=== PATIENT | female | born 1990 | race Asian ===

== ENCOUNTER 2017-08-05 13:06 | Inpatient (IN) | payer MEDICAID, OTHER, SELFPAY ==
[~2017-08-05 13:06] MED LIST: Bacteriostatic Sodium Chloride 10 ML VIAL ONE; Bupivacaine HCl 0.5%/Epinephrine 1:200,000/PF 30 ml Vial ONE; Lidocaine 2% MPF 10 ML AMP (For Epidural Use) ONE
[2017-08-05 13:53] VITALS: BMI 23.1
[2017-08-05] MEDS ORDERED: Lidocaine 2% MPF 10 ML AMP (For Epidural Use) ONE (14:04)
[2017-08-05] MEDS ORDERED: Ondansetron HCl/PF 4 MG/2 ML Vial ONE ×2 (14:04→23:27)
[2017-08-05] MEDS ORDERED: Dexamethasone 20 MG/5 ML VIAL ONE (14:04)
[2017-08-05] MEDS ORDERED: PHENYLEPHRINE-NS 100 MCG/ML 10 ML SYRINGE ONE ×2 (14:04→23:28)
[2017-08-05] MEDS ORDERED: Ketorolac Tromethamine 30 MG/ML VIAL ONE ×2 (14:04→23:27)
--- NOTE | 2017-08-05 14:39 | PDOC.EVN ---
Event Note - Event Note Event Note: @1430: L&D Triage HPI: 26 yo SAB1 at 38.4 weeks with contractions (prefers female provider). Sees Dr Leach. No LOF, no CORTEZ, good FM. No prnatala issues. case reviewed with Dr Walton. Patient evaluated. Review of systems: Complete ROS done and per HPI Allergies: NO SURGURIES: D&C Past OB HX: z 1 Social: negative X 3 Physical: 114/75, afebrile NAD Abd soft NT, gravid Size appropriate CX: closed/thicj/high (per female RN exam) No VB, no ROM Monitors: cat 1, strip reviewed [place] with irregular irritability Assessment: Therm, threatened labor Plan: 1. Monitor for now 2. Pain meds prn 3. Recheck in one our and home if mo significant change
--- NOTE | 2017-08-05 14:46 | PDOC.LDHP ---
Labor and Delivery H&P Chief complaint: contractions HPI: 26 year old @38.4 presents with contractions every 2-3 minutes since 0530 this morning. Denies headache, visual disturbance, abdominal pain, vaginal discharge, bleeding, loss of fluid. Reports regular movements. says she likely has not had enough fluid intake today. Current gestational age (weeks): 38 (38.4) Due date: 08/15/17 Dating criteria: first trimester ultrasound Grav: 3 Para: 1 OB History Details: Current complications: gestational diabetes Abnormal US findings: No Current medications: pre-esperanza vitamins, iron Previous surgical history: dilation and curettage Allergies/Adverse Reactions: Allergies Allergy/AdvReac Type Severity Reaction Status Date / Time No Known Allergies Allergy Unverified 08/02/16 15:40 Social history: none - Physical Exam Vital signs reviewed and normal: yes General: NAD, resting Heart: RRR Lungs: nonlabored breathing Abdomen: other Extremeties: no edema FHT: category 1, variability present [place] contractions every: irritability only - Vaginal Exam cm dilated: 0 Effacement: 25% Station: -3 - OB Labs Blood type: AB RH: positive Antibody Screen: negative HIV: negative RPR: negative HEPSAg: negative 1 hour GCT: positive 3 hour GTT: positive GBS: negative Rubella: immune - Assessment [place] contractions - Plan Plan: observation in L&D (Oral rehydration and recheck cervix. Discharge home if no cervical change. Encouraged oral hydration at home.)
--- NOTE | 2017-08-05 15:34 | PDOC.LDPN ---
Labor & Delivery Progress Note - Subjective Subjective: comfortable - Objective Vital signs reviewed and normal: yes General: NAD, resting, breathing through contractions Uterine fundus: non tender Dilation: 3 Effacement: 75% Station: -1 FHT: category 1, variability present [place] contractions every: Intermittent contractions only Other exam findings: FHTs 140/moderate variability/positive accelrations/no decelerations Plan: continue plan of care -: Patient in latent labor. Continue current management. Recheck in 2 hours.
--- NOTE | 2017-08-05 15:52 | PDOC.EVN ---
Event Note - Event Note Event Note: Triage: Patient has been rechecked. She is now 3cm...BP stable. FHT cat 1. Still in latent phase. We will keep monitoring here and if progresses further, will likely admit.
--- NOTE | 2017-08-05 17:07 | PDOC.EVN ---
Event Note - Event Note Event Note: RN recheck with cervix 3-4cm, otherwise same. Due to cervical change, I have recommended admission for labor to the resident team. Admit to L&D.
[2017-08-05] MEDS ORDERED: Promethazine HCl 25 MG/ML VIAL IM PRN ×2 (17:13→22:40)
[2017-08-05] MEDS ORDERED: Acetaminophen 500 MG TAB PO PRN (17:13)
[2017-08-05] MEDS ORDERED: Ondansetron HCl/PF 4 MG/2 ML Vial IVP PRN ×2 (17:13→22:40)
[2017-08-05] MEDS: Lactated Ringer's 1,000 ML IV SCH ×2 (17:20→22:30)
--- NOTE | 2017-08-05 17:22 | PDOC.LDPN ---
Labor & Delivery Progress Note - Subjective Subjective: painful contractions - Objective Vital signs reviewed and normal: yes General: NAD, breathing through contractions Uterine fundus: non tender SVE: 1700 Dilation: 3.5 Effacement: 75% Station: -1 FHT: category 1, variability present [place] contractions every: 3-4 min - Assessment (1) Term Code(s): Z34.80 - ENCOUNTER FOR SUPRVSN OF NORMAL , UNSP TRIMESTER Current Visit: Yes Status: Acute Plan: continue plan of care -: 26 yo @ 38.4 wks presented w/ ctx 2-3 minutes upon admisson -Made cervical Change from 0/25/-3 to 3.5-4/75/-1 on recheck @ 1700 -Having significant pain rated at 7 w/ contractions Will px tylenol and Stadol as needed -Cat 1 strip, variability. Ctx every 3-4 minutes. -Will admit to L&D and continue to monitor with cervical checks q4hrs overnight. GDM A1 -will continue to monitor sugars as needed. -Diet controlled. <Luis Sanders - Last Filed: 08/05/17 17:23> Plan: other (Dr Shiva Leach to be notified as they prefer a female provider.) <Matheus Owens - Last Filed: 08/05/17 20:18>
[2017-08-05 17:58] LABS: Hemoglobin 15.2 g/dL (12.0-16.0); Mean Corpuscular HGB CONC 34.5 g/dL (32.0-36.0); Mean Corpuscular Hemoglobin 31.7 pg (27.0-31.0); Mean Corpuscular Volume 91.8 fl (81.0-99.0); Platelet Count 164 thou/uL (130-400); RBC Distribution Width 12.7 % (11.5-14.5); White Blood Cell (WBC) Count 9.5 thou/uL (4.8-10.8)
[2017-08-05 18:39] LABS: Syphilis Antibody Nonreactive (Nonreactive); Syphilis Antibody Index 0.06 S/CO (<1.00 Non-Reactive)
[2017-08-05 18:40] LABS: HBSAg Index 0.17 S/CO (0-0.99); Hep B Surf Ag Non-Reactive S/CO (NonReactive)
[2017-08-05] MEDS ORDERED: LR / Pitocin 40 units/1000 ml 1,000 ML ONE (20:02)
[2017-08-05] MEDS ORDERED: Lidocaine 1% (PF) 30 ML VIAL ONE (20:02)
--- NOTE | 2017-08-05 21:05 | PDOC.EVN ---
Event Note - Event Note Event Note: Dr Leach in room with patient. Patient is 9-10cm. I am awaiting outside of room due to patient request of no males in room.
[2017-08-05] MEDS ORDERED: Naloxone HCl 0.4 mg/ml Vial IV PRN (22:12)
[2017-08-05] MEDS ORDERED: Fentanyl 4 mcg/Marc 0.1% Cadd 100 ML in Premix Bag 1 BAG EPIDURAL SCH (22:12)
--- NOTE | 2017-08-05 22:12 | PDOC.LDPN ---
Labor & Delivery Progress Note - Subjective Subjective: other (patient with contraction discomfort (no epidural in use)) - Objective Vital signs reviewed and normal: yes General: breathing through contractions Uterine fundus: non tender SVE: 10 Dilation: 100 Effacement: 0% FHT: variable decelerations (Patient has an external doppler on, and the patient is moving significantly. I have asked Dr Leach tpo place an FSE and/or suggest an epidural to the patient for improved pain control. ) - Assessment (1) Active labor at term Code(s): [id number] - Current Visit: Yes Status: Acute Plan: continue plan of care, other (FSE needed to better track heart tones, this is being done now. Patient consiidering epidural due to patient pain. Patient has been in second stage for only 30 minutes. )
[2017-08-05] MEDS ORDERED: diphenhydrAMINE 50 MG/ML VIAL IVP PRN (22:40)
[2017-08-05] MEDS ORDERED: Lactated Ringer's 500 ML IV PRN (22:40)
[2017-08-05] MEDS ORDERED: Acetaminophen 325 MG TAB PO PRN (22:40)
[2017-08-05] MEDS ORDERED: Eucerin (Mineral Oil/Petrolatum,White) 30 gm Jar TOP PRN (22:40)
[2017-08-05] MEDS ORDERED: ePHEDrine/0.9% NaCl/PF SYRINGE 50 mg/10 ml SLOW IVP PRN (22:40)
[2017-08-05] MEDS ORDERED: Naloxone HCl 0.4 mg/ml Vial IVP PRN ×2 (22:40)
[2017-08-05] MEDS ORDERED: Communication Order-Pharmacy FS SCH (22:45)
[2017-08-05] MEDS ORDERED: Fentanyl 4mcg/Marcaine 0.1% Cassette 100 ML EPIDURAL SCH (22:45)
--- NOTE | 2017-08-05 22:51 | PDOC.LDPN ---
Labor & Delivery Progress Note - Subjective Subjective: painful contractions - Objective Vital signs reviewed and normal: yes General: breathing through contractions Uterine fundus: palpable contractions Dilation: 10 Effacement: 100% Station: 1+ FHT: category 1 (150/mod/no accel) [place] contractions every: 3 FSE placed: yes Resuscitative measures: other (epidural for pain control)
[2017-08-05] MEDS ORDERED: Bicitra 30 ML UDCUP ONE (23:21)
[2017-08-05] MEDS ORDERED: CEFAZOLIN/Water 2 GM/20 ML SYRINGE ONE (23:21)
--- NOTE | 2017-08-05 23:23 | PDOC.EVN ---
Event Note - Event Note Event Note: 2315: PREOP CS Note Indication: Class 3 FHT, prolonged second stage. Patient at C/C/O ROT by Dr Leach. Please see my annotations on the monitor strip. I have been watching the FHT strip for last 20 minutes: she is having persistent late decels with decreased variability (Class III). HUMBERTO in use. As the head is at O station with what seems like narrow pubic arch by Hany (she does not want male exams), we have elected to proceed with primary CS for Class 3 FHTs. additionally, she is now prolonged second stage (2 hrs second stage, as she just received the epidural about 20 minutes ago). BPs reviewed...non-hypotensive. Anesthesia aware. Dr Leach is informing them that I am the faculty organizational development consultant and will be in the CS as well.
[2017-08-05] MEDS ORDERED: Bupivacaine 0.25% HCL 30 ML VIAL ONE ×2 (23:27→23:34)
[2017-08-05] MEDS ORDERED: Oxytocin 10 UNITS/ML VIAL ONE (23:27)
[2017-08-05] MEDS ORDERED: Lidocaine 2% PF 5 ML VIAL ONE (23:27)
[2017-08-05] MEDS ORDERED: Morphine PF 1 MG/ML SYR ONE (23:27)
[2017-08-05] MEDS ORDERED: Dexamethasone 4 mg/ml Vial ONE (23:27)
[2017-08-06] MEDS ORDERED: Azithromycin 500 MG in Sodium Chloride 0.9% 250 ML 250 ML IVPB SCH (00:15)
[2017-08-06] MEDS ORDERED: Adacel (T-DAP) 0.5 ML VIAL IM ONE (00:19)
[2017-08-06] MEDS ORDERED: Lanolin Ointment 7 GM TUBE TOP PRN (00:19)
[2017-08-06] MEDS ORDERED: HYDROcodone/Acetaminophen 5/325 mg Tablet PO PRN (00:19)
[2017-08-06 00:22] LABS: Actual Bicarbonate (HCO3a) 21.5 mEq/L (22-26); Analyzer IN Cardio OR; Base Excess (BEa) -7.3 mEq/L (0 (+/-) 2.5)
--- NOTE | 2017-08-06 00:26 | PDOC.OPDEL ---
OB Operative/Delivery Note Delivery Dr/Surgeon: Hany/Zohaib Assist: Roman Pre-Delivery Diagnosis: arrest of dilation (Failure to descend, Class 3 FHTs), non-reassuring tracing Procedure/Post Delivery Dx: primary low transverse CS Anesthesia: epidural - Additional Findings/Plan Placenta delivered: manual removal findings: low transverse hysterotomy without extension, normal uterus, normal tubes, normal ovaries Estimated blood loss: 1200 Compilations/Other Findings: Male , Agars 8/8 Gas 7.11, BE -7. EBL was due to brief uterine atony post delivery of placenta. Placenta to path. 3VC, Neonatology in room. 2 layer hysterotomy closure performed. rectus muscles loosely reapproximated in midline...Skin: sutured and DBond I was present, scrubbed, and assisted with CS delivery. Uterus closed with 0 vicryl Fascia with O PDS x2 Skin with 3-0 monocryl Post delivery plan: recovery in LICU
[2017-08-06] MEDS ORDERED: LR w/ Pitocin 40 units/1000 ML BAG IV SCH (00:30)
[2017-08-06] MEDS ORDERED: Ketorolac Tromethamine 30 MG/ML VIAL IVP PRN (00:44)
[2017-08-06] MEDS ORDERED: Ondansetron HCl/PF 4 MG/2 ML Vial IVP PRN ×2 (00:44)
[2017-08-06] MEDS ORDERED: Promethazine HCl 25 MG SUPP PR PRN (00:44)
[2017-08-06] MEDS ORDERED: Naloxone HCl 0.4 mg/ml Vial IV PRN (00:44)
[2017-08-06] MEDS ORDERED: diphenhydrAMINE 50 MG/ML VIAL IVP PRN (00:44)
[2017-08-06] MEDS ORDERED: Promethazine HCl 25 MG/ML VIAL IM PRN (00:44)
[2017-08-06] MEDS ORDERED: HYDROmorphone 2 MG/ML VIAL SLOW IVP PRN (00:44)
[2017-08-06] MEDS ORDERED: Eucerin (Mineral Oil/Petrolatum,White) 30 gm Jar TOP PRN (00:44)
[2017-08-06] MEDS ORDERED: Naloxone HCl 0.4 mg/ml Vial IVP PRN ×2 (00:44)
[2017-08-06] MEDS ORDERED: Meperidine HCl/PF 25 MG/ML VIAL SLOW IVP PRN (00:44)
[2017-08-06] MEDS ORDERED: Ketorolac Tromethamine 30 MG/ML VIAL IVP SCH (00:45)
[2017-08-06] MEDS ORDERED: Communication Order-Pharmacy FS SCH (00:45)
[2017-08-06] MEDS ORDERED: Acetaminophen 325 MG TAB PO PRN (02:38)
[2017-08-06] MEDS ORDERED: Lactated Ringer's 1,000 ML IV SCH (04:00)
--- NOTE | 2017-08-06 06:23 | PDOC.EVN ---
Event Note - Event Note Event Note: S: 26 year old -->2 delivered OSEI male @ 38.4 via LTCS @ 23:54 on 08/05/17. Patient states she feels well. She is somewhat sore from the surgery. She also notes minimal lochia, less than a menstrual cycle currently. She admits to fevers and denies chills, coughs, n/v/d. O: Gen: NAD CV: RRR, no murmurs Resp: CTA Abdomen: Incision bandaged and covered A/P 1. Term , delivered - Continue routine care 2. Suspected Intraamniotic infection - Pathology pending placenta - Fever to 102 - Risk factors of fecal matter during delivery, prolonged labor - Will initiate antibiotics. - Continue supportive care. <Mukesh Minor - Last Filed: 08/06/17 06:23> - Event Note Event Note: Suspect postop metritis due to prolonged labor, converted to CS. We will start IV amp/gent/clinda and keep IVfs. Her HCT just returned...HCT was 45 ( hemoconcentrated?) and now 27.5. We will recheck HCT at 1600 today. <Matheus Owens - Last Filed: 08/06/17 06:30>
[2017-08-06 06:27] LABS: Hemoglobin 9.3 g/dL (12.0-16.0); Mean Corpuscular HGB CONC 33.9 g/dL (32.0-36.0); Mean Corpuscular Hemoglobin 31.4 pg (27.0-31.0); Mean Corpuscular Volume 92.6 fl (81.0-99.0); Mean Platelet Volume 7.6 fL (7.4-10.4); Platelet Count 156 thou/uL (130-400); RBC Distribution Width 12.6 % (11.5-14.5); Red Blood Cell (RBC) Count 2.97 mill/uL (4.20-5.40); White Blood Cell (WBC) Count 12.7 thou/uL (4.8-10.8)
[2017-08-06] MEDS ORDERED: Gentamicin 80 MG/2 ML VIAL IVPB SCH (06:30)
--- NOTE | 2017-08-06 06:33 | PDOC.PP ---
Post Progress Note Post Day #: 1 Subjective: Patient feels well. Experiencing fevers to as high as 102, also experiencing pain from surgery. No n/v/d, coughs, or other complaints this morning. PO intake tolerated: yes Flatus: no Ambulation: no Vital Signs (12 hours) Temp Pulse Resp BP 08/06/17 05:59 100.0 F H 08/06/17 05:20 101.6 F H 86 18 102/54 L 08/06/17 03:05 102.0 F H 80 18 100/52 L 08/05/17 19:08 98.7 F 78 20 Weight Weight 63.049 kg - Physical Examination General: NAD Cardiovascular: no m/r/g, RRR Respiratory: clear to auscultation bilaterally, non-labored breathing Abdominal: + bowel sounds, lochia, appropriately TTP Skin: CS incision dry & intact Neurological: no gross focal deficits Psychiatric: A&Ox3 Result Diagrams: 08/06/17 05:53 Additional Labs: Post Labs Hep Bs Antigen Non-Reactive S/CO (NonReactive) 08/05/17 17:20 (1) Chorioamnionitis Code(s): O41.1290 - CHORIOAMNIONITIS, UNSP TRIMESTER, NOT APPLICABLE OR UNSP Status: Acute Comment: Intra-amniotic infection - Will initiate gentamycin, ampicillin, and clindamycin - Continue supportive care (2) Gestational diabetes Code(s): O24.419 - GESTATIONAL DIABETES MELLITUS IN , UNSP CONTROL Status: Acute Comment: POC glucose this am: 126 (3) hemorrhage Code(s): O72.1 - OTHER IMMEDIATE HEMORRHAGE Status: Acute Comment : EBL 1200 H&H this am 9.3 & 27.5 Repeat at 1600 Make treatment changes accordingly (4) Term Code(s): Z34.80 - ENCOUNTER FOR SUPRVSN OF NORMAL , UNSP TRIMESTER Status: Acute Comment: 26 year old ->2 @ 38.4 delivered TAGA male at 23: 54 on 08/05/17 via LTCS. - Continue routine post op care - Continue supportive care. - Assessment/Plan Continue current plan of care.
[2017-08-06] MEDS: Lactated Ringer's 1,000 ML IV SCH ×2 (08:38→18:29)
[2017-08-06] MEDS: Gentamicin Sulfate 300 MG in Sodium Chloride 0.9% 100 ML IVPB SCH (08:56)
[2017-08-06] MEDS: Prenatal Vitamin 1 TAB PO SCH (08:57)
--- NOTE | 2017-08-06 09:34 | OP-2 ---
DATE OF PROCEDURE: 08/05/2017 RESIDENT: Marina Leach M.D., PGY-2 TELEVISION HOST SURGEON: Jacinto Gutierrez M.D., PGY-3 ATTENDING SURGEON: Matheus Owens M.D. PROCEDURE: Primary low transverse section. PREOPERATIVE DIAGNOSES: 1. Arrest of descent. 2. Category III heart tracing. 3. Gestational diabetes, diet controlled. 4. Anemia of . 5. History of hemorrhage requiring blood transfusion. POSTOPERATIVE DIAGNOSES: 1. Arrest of descent. 2. Category III heart tracing. 3. Gestational diabetes, diet controlled. 4. Anemia of . 5. History of hemorrhage requiring blood transfusion. 6. hemorrhage ANESTHESIA: Epidural. INDICATIONS: The patient is a 26-year-old G3, P1-0-1-1, female at 38.4 weeks gestation who presented with painful contractions. The patient progressed as expected to complete dilation, however, after 2 hours did not progress beyond 0 station. An epidural was performed to achieve improved maternal pain control; however, shortly thereafter, the patient was noted to have repetitive late decelerations resulting in a category 3 heart tracing and dispositioned for a primary . PROCEDURE IN DETAIL: Risks, benefits, and alternatives were explained to the patient and she gave informed consent. Preoperative antibiotics included cefazolin 2 grams IV and azithromycin 500 mg IV. The patient was taken to the operating room and prepped and draped in the usual sterile fashion. She was placed in the supine position with left tilt. Pfannenstiel incision was made with scalpel and carried down to the fascia, which was sharply nicked. Fascial cut was extended bilaterally with Santillan scissors. The inferior and superior edges of the cut fascial edges were elevated with Leonidas clamps and underlying rectus muscles were sharply and bluntly dissected free. The recti were divided digitally and retracted manually. The peritoneum was entered bluntly and retracted manually. An Cory O was placed. A low transverse score was made with the scalpel and the uterus was entered in the midline with the scalpel. Clear fluid was seen. Hysterotomy was extended manually in a cephalocaudal fashion. The was noted to be vertex and easily delivered by fundal pressure. Mouth and nares were bulb suctioned. Cord was clamped and cut and grossly normal male infant was handed to awaiting nurse. Body cord was noted around the left leg. Cord blood was obtained as well as a cord segment. Placenta was extracted by gentle traction and fundal pressure, delivered in the [place] presentation, and was sent to pathology. The uterus was manually removed with a lap and ring forceps were placed at bilateral apices. The hysterotomy was repaired with a running locking 0 Vicryl suture followed by a running nonlocking 0 Vicryl imbricating suture. A nlicap-[id number]-drshn suture was placed along the left corner of her for hemostasis. Following this, hemostasis was noted. The abdomen was irrigated with saline and suctioned free of clots. The Cory O was removed and hysterotomy was again noted to be hemostatic. The rectus was approximated with 3-0 chromic suture. The fascia was closed with running nonlocking 0 PDS suture. Subcutaneous tissue was irrigated and there were no bleeders. The skin was closed with running 4-0 Monocryl suture and Dermabond and a pressure dressing were applied. All counts were correct. The patient tolerated the procedure well and was taken to the recovery room in stable condition. ESTIMATED BLOOD LOSS: 1200 mL COMPLICATIONS: hemorrhage. ASSESSMENT: Cord blood sent to lab for blood type, placenta sent to pathology. FINDINGS: Grossly normal male with Apgars of 8 and 8 at 1 and 5 minutes respectively. Grossly normal placenta sent to pathology. DRAINS: [place] to gravity draining clear urine. MTDD
[2017-08-06] MEDS ORDERED: Ampicillin 125 MG/5 ML VIAL SLOW IVP SCH (12:00)
[2017-08-06] MEDS: Ampicillin 2 GM, Syringe 5.2 ML in Sterile Water 14.8 ML SLOW IVP SCH ×2 (12:18→18:28)
[2017-08-06] MEDS: Clindamycin/D5W 900 MG in Premix Bag 1 BAG IVPB SCH ×2 (13:58→21:51)
[2017-08-06 16:27] LABS: Hemoglobin 9.6 g/dL (12.0-16.0)
[2017-08-06] MEDS: HYDROcodone/Acetaminophen 5/325 mg Tablet PO PRN (21:56)
[2017-08-07] MEDS: Ampicillin 2 GM, Syringe 5.2 ML in Sterile Water 14.8 ML SLOW IVP SCH ×4 (00:22→18:16)
[2017-08-07] MEDS: Lactated Ringer's 1,000 ML IV SCH ×4 (05:48→18:00)
[2017-08-07] MEDS: Clindamycin/D5W 900 MG in Premix Bag 1 BAG IVPB SCH ×3 (05:49→22:10)
--- NOTE | 2017-08-07 08:01 | PDOC.PP ---
Post Progress Note Post Day #: 2 Subjective: Ms. Singh is feeling ok this morning. Pain is adequately controlled on [place] and Ibuprofen. Minimal lochia. She is and feels she is producing less milk than needed so they are supplementing a little with formula. No additional concerns. PO intake tolerated: yes Flatus: yes Ambulation: yes Vital Signs (12 hours) Temp Pulse Resp BP 08/07/17 04:15 98.6 F 64 16 111/70 08/07/17 00:36 98.5 F 83 16 112/56 L 08/07/17 00:10 98.8 F 70 16 112/63 Weight Weight 63.049 kg - Physical Examination General: NAD Cardiovascular: no m/r/g, RRR Respiratory: clear to auscultation bilaterally, non-labored breathing Abdominal: + bowel sounds, lochia (minimal), no distention Deviation from normal: slightly more tender to palpation than expected, no guarding or rigidity Fundus firm & at: just above umbilicus Extremities: negative homans (B) Skin: CS incision dry & intact, no rash Neurological: no gross focal deficits Psychiatric: A&Ox3, normal affect Result Diagrams: 08/06/17 16:14 Additional Labs: Post Labs Hep Bs Antigen Non-Reactive S/CO (NonReactive) 08/05/17 17:20 (1) endometritis Code(s): O86.12 - ENDOMETRITIS FOLLOWING DELIVERY Status: Acute (2) Delivery by section using transverse incision of lower segment of uterus Code(s): O82 - ENCOUNTER FOR DELIVERY WITHOUT INDICATION Status: Acute (3) hemorrhage Code(s): O72.1 - OTHER IMMEDIATE HEMORRHAGE Status: Acute - Assessment/Plan 1. POD #1 from primary LTCS for arrest of descent/NRFHT - [place] out and voiding spontaneously - Encouraged ambulation up and down halls today - Pain adequately controlled on [place] and Ibuprofen - 2. PP Endometritis - Tmax yesterday morning to 102 with associated tenderness - Continue triple therapy - Monitor for fever/chills/white count - Placenta sent to pathology for evaluation 3. A1GDM - Continue fasting accuchecks 4. hemorrhage - Vital signs stable apart from fever yesterday noted above - EBL est. 1200 intraoperatively - H/H stable all day yesterday - Will recheck again tomorrow or sooner if any indication MD Brittany, PGY-2 <Marina Leach - Last Filed: 08/07/17 08:31> Vital Signs (12 hours) Temp Pulse Resp BP 08/07/17 20:15 98.2 F 99 16 103/53 L Weight Weight 63.049 kg Result Diagrams: 08/08/17 05:04 Additional Labs: Post Labs Hep Bs Antigen Non-Reactive S/CO (NonReactive) 08/05/17 17:20 <Navin Bravo - Last Filed: 08/08/17 06:00> Assessment/Plan - Plan Plan: Discussed with team. Agree with plan of care. <Navin Bravo - Last Filed: 08/08/17 06:00>
[2017-08-07] MEDS: Prenatal Vitamin 1 TAB PO SCH (08:10)
[2017-08-07] MEDS: HYDROcodone/Acetaminophen 5/325 mg Tablet PO PRN ×2 (08:10→18:24)
[2017-08-07] MEDS: Gentamicin Sulfate 300 MG in Sodium Chloride 0.9% 100 ML IVPB SCH (09:39)
[2017-08-07] MEDS ORDERED: Sodium Chloride 0.9% 10 ML ONE (22:22)
[2017-08-08] MEDS: Ampicillin 2 GM, Syringe 5.2 ML in Sterile Water 14.8 ML SLOW IVP SCH ×2 (00:04→05:33)
[2017-08-08] MEDS: Clindamycin/D5W 900 MG in Premix Bag 1 BAG IVPB SCH (05:27)
[2017-08-08] MEDS: Lactated Ringer's 1,000 ML IV SCH (05:34)
[2017-08-08 05:46] LABS: #Eosinphils 0.1 thou/uL (0.0-0.7); #Lymphocytes 1.8 thou/uL (1.20-3.40); #Monocytes 0.6 thou/uL (0.11-0.59); #Neutrophils 6.2 thou/uL (1.40-6.50); %Basophils 0.3 % (0.0-1.0); %Lymphocytes 20.8 % (21.0-51.0); %Monocytes 7.1 % (0.0-10.0); %Neutrophils 70.8 % (42.0-75.0); Hemoglobin 10.1 g/dL (12.0-16.0); Mean Corpuscular Hemoglobin 31.9 pg (27.0-31.0); Mean Corpuscular Volume 93.7 fl (81.0-99.0); Mean Platelet Volume 7.5 fL (7.4-10.4); Platelet Count 199 thou/uL (130-400); RBC Distribution Width 12.6 % (11.5-14.5); Red Blood Cell (RBC) Count 3.17 mill/uL (4.20-5.40); White Blood Cell (WBC) Count 8.8 thou/uL (4.8-10.8)
--- NOTE | 2017-08-08 06:54 | PDOC.PP ---
Post Progress Note Post Day #: 2 Subjective: Ms. Singh feels improved this morning. She is tolerating PO without issue and ambulating. She feels weak but overall better than yesterday. PO intake tolerated: yes Flatus: yes Ambulation: yes Vital Signs (12 hours) Temp Pulse Resp BP 08/08/17 06:20 98.2 F 08/08/17 05:00 98.1 F 99 16 08/08/17 02:00 98.1 F 08/08/17 00:15 98.2 F 99 16 08/07/17 20:15 98.2 F 99 16 103/53 L Weight Weight 63.049 kg - Physical Examination General: NAD Cardiovascular: no m/r/g, RRR Respiratory: clear to auscultation bilaterally, non-labored breathing Abdominal: + bowel sounds, lochia (scant), no distention, appropriately TTP Fundus firm & at: umbilicus Extremities: negative homans (B) (no edema, pulses present BL) Skin: CS incision dry & intact, no rash Neurological: no gross focal deficits Psychiatric: A&Ox3, normal affect Result Diagrams: 08/08/17 05:04 Additional Labs: Post Labs Hep Bs Antigen Non-Reactive S/CO (NonReactive) 08/05/17 17:20 (1) endometritis Code(s): O86.12 - ENDOMETRITIS FOLLOWING DELIVERY Status: Acute (2) Delivery by section using transverse incision of lower segment of uterus Code(s): O82 - ENCOUNTER FOR DELIVERY WITHOUT INDICATION Status: Acute (3) hemorrhage Code(s): O72.1 - OTHER IMMEDIATE HEMORRHAGE Status: Acute - Assessment/Plan 1. POD #2 from primary LTCS for arrest of descent/NRFHT - Voiding spontaneously, passing flatus but no BM yet - Pain adequately controlled on [place] and Ibuprofen - - Will plan for D/C later today 2. PP Endometritis - Tmax 98.9 in last 24H, last fever 0520 on 08/06/2017 - Abdominal tenderness much improved - Continue IV abx this morning - If she remains afebrile and now > 48h without fever, will monitor for sx outpatient - White count stable with no bands - Placenta sent to pathology for evaluation 3. A1GDM - Fasting accuchecks - Plan for 2 hour OGTT 6 weeks 4. hemorrhage - Vital signs stable - EBL est. 1200 intraoperatively - H/H improved slightly this morning - Continue PO iron supplementation MD Brittany, PGY-2 <Marina Leach - Last Filed: 08/08/17 06:56> Weight Weight 63.049 kg Result Diagrams: 08/08/17 05:04 Additional Labs: Post Labs Hep Bs Antigen Non-Reactive S/CO (NonReactive) 08/05/17 17:20 <Navin Bravo - Last Filed: 08/10/17 00:29> Assessment/Plan - Assessment/Plan Plan: I have examined this pt. with Dr. Leach and agree with the plan of management. <Navin Bravo - Last Filed: 08/10/17 00:29>
[2017-08-08] MEDS: Gentamicin Sulfate 300 MG in Sodium Chloride 0.9% 100 ML IVPB SCH (07:49)
[2017-08-08] MEDS: Prenatal Vitamin 1 TAB PO SCH (09:06)
[2017-08-08 12:10] VITALS: BP 112/72; TEMP 98.3
== END 2017-08-08 13:55 | disposition home or self-care (01) | DRG 765 ==
LOC: L&D/OP 13:06 → L&D 17:41 → 3SW 08-06 03:49
PROVIDERS: ADMIT Obstetrics & Gynecology; ATTEND Obstetrics & Gynecology
PROC: 10D00Z1 Extraction of Products of Conception, Low, Open Approach (ICD-10-PCS; principal; 2017-08-05)
PROC: 4A0HXCZ Measurement of Products of Conception, Cardiac Rate, External Approach (ICD-10-PCS; 2017-08-05)
DX: O63.1 Prolonged second stage (of labor) (principal); O41.1230 Chorioamnionitis, third trimester, not applicable or unspecified; O72.1 Other immediate postpartum hemorrhage; O86.12 Endometritis following delivery; O24.420 Gestational diabetes mellitus in childbirth, diet controlled; D64.9 Anemia, unspecified; O99.02 Anemia complicating childbirth; O76 Abnormality in fetal heart rate and rhythm complicating labor and delivery; Z3A.38 38 weeks gestation of pregnancy; Z37.0 Single live birth
CPT/HCPCS: 36415; 36416; 51702; 82805; 85025; 85027; 86780; 87340; 88307; 99285; A4216; J0290; J0456; J0595; J0670; J1100; J1580; J1885; J2001; J2274; J2405; J2550; J2590; J3490; J7050; S0020